=== PATIENT | female | born 1995 | race Caucasian/White ===

== ENCOUNTER 2017-10-02 11:59 | Emergency (ER) | payer OTHER ==
[~2017-10-02] VITALS: Ht 160 cm; Wt 63.6 kg
[2017-10-02 12:00] VITALS: BP 124/72; PULSE 97; RESP 20; TEMP 99.3; O2SAT 98
[2017-10-02] MEDS ORDERED: TRIMSOL EACH EYE (12:20)
[2017-10-02] MEDS ORDERED: OCUF0.3D EACH EYE (12:37)
--- NOTE | 2017-10-02 12:40 | PD ---
HPI Chief Complaint: Eye Problems/Injury Time Seen by Provider: 12:23 Travel History International Travel<30 days: No Contact w/Intl Traveler<30days: No Traveled to known affect area: No History of Present Illness HPI 22-year-old female presents emergency Department with complaint of bilateral eye redness, irritation, clear drainage 1 week with worsening of symptoms. Seen at urgent care 1 week ago and has Been using Polytrim eyedrops 7 days without improvement in symptoms. Her mother had similar symptoms and used the Polytrim eyedrops and her symptoms cleared up. They did just move to [place] one month ago. She had cold symptoms along with the eye symptoms within the last week. Reports continued nasal drainage. Denies ear pain, throat pain, cough. Denies eye pain. Has not tried any other treatments to alleviate her symptoms. Symptoms are mild in severity. Allergies to bacitracin, neomycin, polymyxin B. No established primary care provider. Denies significant past medical history. Has no other medical complaints. No other modifying factors or associated signs and symptoms. PFSH Past Medical History Medical History: Denies Significant Hx ?: Not LMP: 09/04/17 Past Surgical History Tonsillectomy: Yes Social History Alcohol Use: Yes Tobacco Use: No Substance Use: No Allergies-Medications (Allergen,Severity, Reaction): Coded Allergies: bacitracin (Verified Allergy, Mild, 10/02/17) neomycin (Verified Allergy, Mild, 10/02/17) polymyxin B (Verified Allergy, Mild, 10/02/17) Reported Meds & Prescriptions Reported Meds & Active Scripts Active Azithromycin 500 Mg Tab 500 Mg PO DAILY Ocuflox Opth Drops (Ofloxacin Opth Drops) 0.3 % Drops 2 Drop EACH EYE Q6HR 7 Days Reported Polymyxin B-Trimethoprim Opth Drops 10,000-0.1 Unit/Ml-% Soln 1 Drop EACH EYE Q6HR Review of Systems Except as stated in HPI: all other systems reviewed are Neg Physical Exam Narrative GENERAL: Well-nourished, well-developed female patient, in no acute distress; afebrile, nontoxic-appearing SKIN: Warm and dry. No rash. HEAD: Atraumatic. Normocephalic. EYES: Pupils equal and round at 3 mm with brisk reaction. PERRLA. EOMI. Bilateral eyes with scleral erythema and mild lid edema. No orbital tenderness , erythema or cellulitis. Bilateral eyes without photophobia. No consensual photophobia. No scleral icterus. Clear drainage. ENT: Mucosa pink and moist. No erythema or exudates. No uvular edema. No uvular , palatal, or tonsillar deviation. Airway patent. EARS: Bilateral pinnae and external canals appear within normal limits. Bilateral tympanic membranes without erythema, dullness or perforation. NECK: Trachea midline. No lymphadenopathy. CARDIOVASCULAR: Regular rate. RESPIRATORY: No accessory muscle use. GASTROINTESTINAL: Flat. MUSCULOSKELETAL: No obvious deformities. No clubbing. No cyanosis. No edema. NEUROLOGICAL: Awake and alert. Oriented 3. No obvious cranial nerve deficits. Motor grossly within normal limits. Normal speech. Moves all extremities. 5/5 strength to all extremities. PSYCHIATRIC: Appropriate mood and affect; insight and judgment normal. Data Data Last Documented VS Vital Signs Date Time Temp Pulse Resp B/P (MAP) Pulse Ox O2 Delivery O2 Flow Rate FiO2 10/02/17 12:57 10/02/17 12:00 99.3 97 20 98 Room Air Orders Orders Ed Discharge Order (10/02/17 12:40) [facility] Medical Decision Making Medical Screen Exam Complete: Yes Emergency Medical Condition: Yes Medical Record Reviewed: Yes Differential Diagnosis Allergic conjunctivitis, bacterial conjunctivitis, viral conjunctivitis Narrative Course 22-year-old female with bilateral conjunctivitis and possible upper respiratory infection. She's been being treated with Polytrim eyedrops for the last week with worsening of bilateral eye redness, clear drainage, irritation. 1255: The patient had originally said she was not allergic to anything but she didn't tell than her she was allergic to Neosporin. When the nurse entered Neosporin into the allergy list acitretin, neomycin, polymyxin B came up as allergies. I discussed this with the patient and told her to stop using the eyedrops as she may be having allergic conjunctivitis to the polymyxin B eyedrops, causing her worsening of symptoms. Instructed patient to take Benadryl at home and to use [id number] allergic eye drops as directed and as needed for symptom management. The patient was also given prescriptions for ofloxacin and azithromycin her home. Instructed patient to follow up with ophthalmology as needed. Instructed patient to follow up with primary care provider. Patient verbalizes understanding and agreement with treatment plan. Patient is medically cleared and stable for discharge. Discussed reasons to return to the emergency department. Patient agrees with treatment plan. The patients vital signs are stable and the patient is stable for outpatient follow- up and treatment. Patient discharged home, stable and in no acute distress. Diagnosis Primary Impression: Conjunctivitis of both eyes Qualified Codes: H10.9 - Unspecified conjunctivitis Additional Impression: URI (upper respiratory infection) Qualified Codes: J06.9 - Acute upper respiratory infection, unspecified Referrals: [employer] Clerk Primary Care Physician Patient Instructions: Conjunctivitis (ED), General Instructions, Upper Respiratory Infection (ED) Additional Instructions: Conjunctivitis is contagious Use antibiotic eye drops as prescribed Apply warm or cool compresses to both eyes for a few minutes several times daily to minimize irritation Avoid triggers, such as allergens, that may irritate your eyes Wash your hands frequently Do not share washcloths, towels, pillows, or any other material that has touched your eyes with any other household members [id number] allergy eyedrops as directed and as needed for symptom management Follow-up with your primary care provider Follow-up with ophthalmology as needed Return to the emergency department immediately with worsening of symptoms Med/Other Pt SpecificInfo: Prescription(s) given Scripts Azithromycin (Azithromycin) 500 Mg Tab 500 MG PO DAILY for Infection, #5 TAB 0 Refills Prov: Renata Domínguez 10/02/17 Ofloxacin Opth Drops (Ocuflox Opth Drops) 0.3 % Drops 2 DROP EACH EYE Q6HR for Infection for 7 Days, #1 BOTTLE 0 Refills Prov: Renata Domínguez 10/02/17 Disposition: 01 DISCHARGE HOME Condition: Stable Renata Domínguez Oct 02, 2017 12:40
[2017-10-02] MEDS ORDERED: AZIT500T2 PO (12:41)
== END 2017-10-02 13:07 | disposition home or self-care (01) ==
LOC: NEPD 11:59
DX: H10.9 Unspecified conjunctivitis (principal); J06.9 Acute upper respiratory infection, unspecified; Z79.899 Other long term (current) drug therapy
CPT/HCPCS: 99284